=== PATIENT | male | born 1980 | race Caucasian/White ===

== ENCOUNTER → 2017-06-03 | Outpatient (CLI) | payer BC | END | disposition home or self-care (01) | LOC: C.RDSM 18:59 | PROVIDERS: ATTEND Orthopaedic Surgery | DX: R52 Pain, unspecified (principal) ==

== ENCOUNTER → 2017-07-08 | Outpatient (CLI) | payer BC ==
--- NOTE | 2017-07-08 08:33 | DIAGNOSTIC IMAGING REPORT ---
MRI LEFT SHOULDER NO CONTRAST CLINICAL HISTORY: LT SHOULDER IMPINGEMENT left shoulder pain COMPARISON STUDY: Conventional radiographic study dated 06/03/2017 FINDINGS: Imaging was performed in sagittal, coronal, and axial planes. There are no areas of marrow replacement to indicate occult fracture or bone bruise. The bicipital tendon appears intact. There is thickening and increased signal within the distal supraspinatus tendon consistent with supraspinatus tendinopathy. There is no evidence of full-thickness tear. There is mild subscapularis tendinopathy. There is no evidence of muscular atrophy. There is blunting of the posterior glenoid labrum. IMPRESSION: 1. No evidence of full-thickness rotator cuff tear 2. Supraspinatus and subscapularis tendinopathy 3. Blunting of the posterior glenoid labrum suspicious for a tear Electronically signed by: Anthony Manzanares M.D. 07/08/2017 8:31 AM Dictated Date/Time: 07/08/2017 8:26 AM
== END | disposition home or self-care (01) ==
LOC: C.MRI 07:41
PROVIDERS: ATTEND Orthopaedic Surgery
DX: M75.91 Shoulder lesion, unspecified, right shoulder (principal); R93.7 Abnormal findings on diagnostic imaging of other parts of musculoskeletal system; M75.40 Impingement syndrome of unspecified shoulder